=== PATIENT | male | born 1950 | race Caucasian/White ===

== ENCOUNTER 2023-01-16 23:38 | Inpatient (IN) | payer OTHER, BC ==
[2023-01-17] MEDS ORDERED: SODIUM CHLORIDE 0.9% 500 ML INFUS.BAG IV ONE (01:15)
[2023-01-17] MEDS ORDERED: ACETAMINOPHEN 1000 MG/100 ML BAG IVPB ONE (01:15)
[2023-01-17 01:38] LABS: BASO % 0.7 % (0-2.0); EOS % 0.8 % (0-4.5); HEMATOCRIT 37.5 % (35.4-49); HEMOGLOBIN 12.6 GM/dL (11.7-16.9); LYMPH % 11.4 % (8-40); MCH 31.5 pg (25.7-33.7); MCHC 33.6 g/dl (32.0-35.9); MEAN CELL VOLUME 93.8 fl (80-96); MEAN PLT VOLUME 7.2 fl (7.5-11.1); NEUT % 74.1 % (42.8-82.8); PLATELET COUNT 355 10^3/uL (134-434); RBC 3.99 M/mm3 (4.00-5.60); RDW 12.8 % (11.9-15.9); WHITE BLOOD COUNT 15.5 K/mm3 (4.0-10.0)
[2023-01-17 01:56] LABS: POTASSIUM 4.1 mmol/L (3.5-5.1)
[2023-01-17 01:57] LABS: ALBUMIN 2.6 g/dl (3.4-5.0); BLOOD UREA NITROGEN 18.3 mg/dL (7-18); CALCIUM 8.2 mg/dL (8.5-10.1)
[2023-01-17 02:02] LABS: BILIRUBIN,TOTAL 0.4 mg/dL (0.2-1); TOT PROT 6.7 g/dl (6.4-8.2)
[2023-01-17 06:08] LABS: PH,URINE 6.5 (5.0-8.0); URINE APPEARANCE CLEAR; URINE BILIRUBIN NEGATIVE (NEGATIVE); URINE COLOR YELLOW; URINE GLUCOSE (UA) NEGATIVE (NEGATIVE); URINE KETONE NEGATIVE (NEGATIVE); URINE LEUK ESTERASE NEGATIVE (NEGATIVE); URINE NITRITE NEGATIVE (NEGATIVE); URINE PROTEIN NEGATIVE (NEGATIVE)
[2023-01-17 06:48] LABS: ERYTHROCYTE SEDIMENTATION RATE 91 mm/hr (0-20)
[2023-01-17 08:53] LABS: PH,URINE 6.5 (5.0-8.0); URINE APPEARANCE CLEAR; URINE BILIRUBIN NEGATIVE (NEGATIVE); URINE COLOR YELLOW; URINE GLUCOSE (UA) NEGATIVE (NEGATIVE); URINE KETONE TRACE (NEGATIVE); URINE LEUK ESTERASE NEGATIVE (NEGATIVE); URINE NITRITE NEGATIVE (NEGATIVE); URINE PROTEIN TRACE (NEGATIVE)
[2023-01-17 09:18] LABS: BASO % 0.9 % (0-2.0); EOS % 2.3 % (0-4.5); HEMATOCRIT 35.9 % (35.4-49); HEMOGLOBIN 12.2 GM/dL (11.7-16.9); LYMPH % 14.7 % (8-40); MCH 31.9 pg (25.7-33.7); MCHC 33.9 g/dl (32.0-35.9); MEAN CELL VOLUME 94.1 fl (80-96); MEAN PLT VOLUME 7.2 fl (7.5-11.1); MONO % 11.5 % (3.8-10.2); NEUT % 70.6 % (42.8-82.8); PLATELET COUNT 377 10^3/uL (134-434); RBC 3.82 M/mm3 (4.00-5.60); RDW 12.6 % (11.9-15.9); WHITE BLOOD COUNT 15.3 K/mm3 (4.0-10.0)
[2023-01-17 09:31] LABS: POTASSIUM 4.1 mmol/L (3.5-5.1)
[2023-01-17 09:33] LABS: CALCIUM 8.1 mg/dL (8.5-10.1)
[2023-01-17 09:34] LABS: ALBUMIN 2.4 g/dl (3.4-5.0); BLOOD UREA NITROGEN 14.1 mg/dL (7-18)
[2023-01-17 09:37] LABS: CREATININE 0.9 mg/dL (0.55-1.3)
[2023-01-17 09:38] LABS: TOT PROT 6.3 g/dl (6.4-8.2)
[2023-01-17 09:39] LABS: BILIRUBIN,TOTAL 0.6 mg/dL (0.2-1)
[2023-01-17] MEDS ORDERED: LEVOTHYROXINE NA 125 MCG TABLET (FP) PO ONE (11:00)
[2023-01-17] MEDS ORDERED: LEVOTHYROXINE 112 MCG, LEVOTHYROXINE 25 MCG PO ONE (12:00)
[2023-01-17] MEDS ORDERED: PIPERACILLIN/TAZOB 4.5 GM 3.375 GM in DEXTROSE 5%-WATER 100 ML IVPB ONE (12:42)
[2023-01-17] MEDS ORDERED: CEFTRIAXONE 1 GM/50 ML BAG ONE (13:00)
[2023-01-17] MEDS: CEFTRIAXONE 1 GM in DEXTROSE 5%-WATER - 50 ML IVPB SCH (13:02)
[2023-01-17 16:40] LABS: HIV INTERPRETATION NEGATIVE (NEGATIVE)
[2023-01-17] MEDS ORDERED: DOCUSATE SODIUM 100 MG CAPSULE (FP) PO ONE (17:49)
[2023-01-17] MEDS: DOCUSATE SODIUM 100 MG CAPSULE (FP) PO SCH ×2 (17:50→22:21)
[2023-01-17] MEDS: ACETAMINOPHEN 500 MG TABLET (FP) PO PRN (18:12)
[2023-01-17] MEDS ORDERED: ACETAMINOPHEN 325 MG TABLET (FP) ONE (18:12)
[2023-01-18 05:01] VITALS: BMI 19.5
[2023-01-18] MEDS: LEVOTHYROXINE 112 MCG, LEVOTHYROXINE 25 MCG PO SCH (06:29)
[2023-01-18] MEDS: DOCUSATE SODIUM 100 MG CAPSULE (FP) PO SCH ×3 (06:29→21:45)
[2023-01-18] MEDS ORDERED: LEVOTHYROXINE NA 125 MCG TABLET (FP) PO SCH (07:00)
[2023-01-18] MEDS ORDERED: cefTRIAXone SODIUM 1 GM VIAL ONE ×2 (09:17→09:43)
[2023-01-18] MEDS: CEFTRIAXONE 1 GM in DEXTROSE 5%-WATER - 50 ML IVPB SCH (09:36)
[2023-01-18] MEDS: ENOXAPARIN NA (PORCINE) 40 MG/0.4 ML DISP.SYRIN SQ SCH (09:45)
[2023-01-18 10:07] LABS: CMV IgM < 30.0 AU/mL (0.0-29.9)
[2023-01-18 12:45] LABS: BASO % 0.9 % (0-2.0); EOS % 1.3 % (0-4.5); HEMATOCRIT 34.7 % (35.4-49); HEMOGLOBIN 11.9 GM/dL (11.7-16.9); LYMPH % 12.7 % (8-40); MCH 31.9 pg (25.7-33.7); MCHC 34.3 g/dl (32.0-35.9); MEAN PLT VOLUME 7.7 fl (7.5-11.1); MONO % 12.2 % (3.8-10.2); NEUT % 72.9 % (42.8-82.8); PLATELET COUNT 369 10^3/uL (134-434); RBC 3.73 M/mm3 (4.00-5.60); RDW 12.9 % (11.9-15.9); WHITE BLOOD COUNT 12.5 K/mm3 (4.0-10.0)
[2023-01-18 12:48] LABS: INR 1.51 (0.83-1.09); PROTHROMBIN TIME (PATIENT) 17.4 SEC (9.7-13.0)
[2023-01-18 13:02] LABS: POTASSIUM 3.8 mmol/L (3.5-5.1)
[2023-01-18 13:03] LABS: CALCIUM 7.9 mg/dL (8.5-10.1)
[2023-01-18 13:04] LABS: ALBUMIN 2.2 g/dl (3.4-5.0); BLOOD UREA NITROGEN 14.5 mg/dL (7-18)
[2023-01-18 13:06] LABS: CREATININE 0.9 mg/dL (0.55-1.3)
[2023-01-18 13:08] LABS: BILIRUBIN,TOTAL 0.4 mg/dL (0.2-1); TOT PROT 6.1 g/dl (6.4-8.2)
[2023-01-18] MEDS: METHYL SALICYLATE/MENTHOL OINT 30 GM TUBE TP SCH ×3 (14:43→22:24)
[2023-01-18] MEDS: ACETAMINOPHEN 500 MG TABLET (FP) PO PRN (16:16)
[2023-01-18 17:06] LABS: EPSTEIN BARR ANTIBODY IgM <36.0 U/mL (0.0-35.9)
[2023-01-19] MEDS: LEVOTHYROXINE 112 MCG, LEVOTHYROXINE 25 MCG PO SCH (06:33)
[2023-01-19] MEDS: DOCUSATE SODIUM 100 MG CAPSULE (FP) PO SCH ×3 (06:33→21:31)
[2023-01-19 07:59] LABS: BASO % 0.5 % (0-2.0); EOS % 2.9 % (0-4.5); HEMATOCRIT 34.7 % (35.4-49); HEMOGLOBIN 11.7 GM/dL (11.7-16.9); LYMPH % 10.1 % (8-40); MCH 31.9 pg (25.7-33.7); MCHC 33.7 g/dl (32.0-35.9); MEAN CELL VOLUME 94.6 fl (80-96); MEAN PLT VOLUME 7.2 fl (7.5-11.1); MONO % 12.8 % (3.8-10.2); NEUT % 73.7 % (42.8-82.8); PLATELET COUNT 386 10^3/uL (134-434); RBC 3.67 M/mm3 (4.00-5.60); RDW 12.8 % (11.9-15.9); WHITE BLOOD COUNT 14.5 K/mm3 (4.0-10.0)
[2023-01-19 08:23] LABS: POTASSIUM 4.2 mmol/L (3.5-5.1)
[2023-01-19 08:42] LABS: ALBUMIN 2.1 g/dl (3.4-5.0); BLOOD UREA NITROGEN 17.1 mg/dL (7-18); CALCIUM 7.8 mg/dL (8.5-10.1); MAGNESIUM 2.1 mg/dL (1.8-2.4)
[2023-01-19 08:45] LABS: BILIRUBIN,TOTAL 0.9 mg/dL (0.2-1); CREATININE 0.9 mg/dL (0.55-1.3); PHOSPHOROUS 3.1 mg/dL (2.5-4.9); TOT PROT 5.8 g/dl (6.4-8.2)
[2023-01-19] MEDS: METHYL SALICYLATE/MENTHOL OINT 30 GM TUBE TP SCH ×2 (10:49→21:31)
[2023-01-19] MEDS: ENOXAPARIN NA (PORCINE) 40 MG/0.4 ML DISP.SYRIN SQ SCH (10:50)
[2023-01-19] MEDS: CEFTRIAXONE 1 GM in DEXTROSE 5%-WATER - 50 ML IVPB SCH (10:50)
[2023-01-19] MEDS: PIPERACILLIN/TAZOB 4.5 GM 4.5 GM in DEXTROSE 5%-WATER 100 ML IVPB SCH (18:18)
[2023-01-19] MEDS: ACETAMINOPHEN 500 MG TABLET (FP) PO PRN (21:18)
[2023-01-20] MEDS: PIPERACILLIN/TAZOB 4.5 GM 4.5 GM in DEXTROSE 5%-WATER 100 ML IVPB SCH ×3 (02:06→17:34)
[2023-01-20] MEDS: DOCUSATE SODIUM 100 MG CAPSULE (FP) PO SCH ×4 (06:11→22:44)
[2023-01-20] MEDS: LEVOTHYROXINE 112 MCG, LEVOTHYROXINE 25 MCG PO SCH (06:15)
[2023-01-20 08:58] LABS: BASO % 0.6 % (0-2.0); EOS % 2.9 % (0-4.5); HEMATOCRIT 34.4 % (35.4-49); HEMOGLOBIN 11.5 GM/dL (11.7-16.9); LYMPH % 8.2 % (8-40); MCH 31.6 pg (25.7-33.7); MCHC 33.5 g/dl (32.0-35.9); MEAN CELL VOLUME 94.4 fl (80-96); MEAN PLT VOLUME 7.3 fl (7.5-11.1); MONO % 11.1 % (3.8-10.2); NEUT % 77.2 % (42.8-82.8); PLATELET COUNT 434 10^3/uL (134-434); RBC 3.64 M/mm3 (4.00-5.60); RDW 12.7 % (11.9-15.9); WHITE BLOOD COUNT 16.1 K/mm3 (4.0-10.0)
[2023-01-20] MEDS: METHYL SALICYLATE/MENTHOL OINT 30 GM TUBE TP SCH ×3 (09:13→22:45)
[2023-01-20] MEDS: ENOXAPARIN NA (PORCINE) 40 MG/0.4 ML DISP.SYRIN SQ SCH (09:13)
[2023-01-20 09:16] LABS: POTASSIUM 4.2 mmol/L (3.5-5.1)
[2023-01-20 09:22] LABS: BLOOD UREA NITROGEN 18.7 mg/dL (7-18); MAGNESIUM 2.1 mg/dL (1.8-2.4)
[2023-01-20 09:25] LABS: CREATININE 0.9 mg/dL (0.55-1.3)
[2023-01-20 09:26] LABS: BILIRUBIN,TOTAL 0.6 mg/dL (0.2-1); TOT PROT 5.8 g/dl (6.4-8.2)
[2023-01-20] MEDS: ACETAMINOPHEN 500 MG TABLET (FP) PO PRN ×2 (11:09→22:46)
[2023-01-21] MEDS: PIPERACILLIN/TAZOB 4.5 GM 4.5 GM in DEXTROSE 5%-WATER 100 ML IVPB SCH ×3 (01:41→18:18)
[2023-01-21] MEDS: DOCUSATE SODIUM 100 MG CAPSULE (FP) PO SCH ×3 (06:11→21:36)
[2023-01-21] MEDS: LEVOTHYROXINE 112 MCG, LEVOTHYROXINE 25 MCG PO SCH (06:12)
[2023-01-21 09:00] LABS: BASO % 0.5 % (0-2.0); EOS % 4.5 % (0-4.5); HEMATOCRIT 34.1 % (35.4-49); HEMOGLOBIN 11.7 GM/dL (11.7-16.9); LYMPH % 10.6 % (8-40); MCH 32.2 pg (25.7-33.7); MCHC 34.3 g/dl (32.0-35.9); MEAN CELL VOLUME 93.8 fl (80-96); MEAN PLT VOLUME 6.9 fl (7.5-11.1); MONO % 11.1 % (3.8-10.2); NEUT % 73.3 % (42.8-82.8); PLATELET COUNT 473 10^3/uL (134-434); RBC 3.64 M/mm3 (4.00-5.60); RDW 12.9 % (11.9-15.9); WHITE BLOOD COUNT 14.6 K/mm3 (4.0-10.0)
[2023-01-21 09:10] LABS: POTASSIUM 4.3 mmol/L (3.5-5.1)
[2023-01-21 09:15] LABS: MAGNESIUM 2.2 mg/dL (1.8-2.4)
[2023-01-21 09:18] LABS: CREATININE 0.8 mg/dL (0.55-1.3); PHOSPHOROUS 3.2 mg/dL (2.5-4.9)
[2023-01-21 09:20] LABS: BILIRUBIN,TOTAL 0.6 mg/dL (0.2-1); TOT PROT 5.8 g/dl (6.4-8.2)
[2023-01-21 09:25] LABS: BLOOD UREA NITROGEN 13.3 mg/dL (7-18)
[2023-01-21] MEDS ORDERED: PIPERACILLIN/TAZOBACTAM 4.5 GM VIAL IVPB ONE (10:12)
[2023-01-21] MEDS: ENOXAPARIN NA (PORCINE) 40 MG/0.4 ML DISP.SYRIN SQ SCH (10:31)
[2023-01-21] MEDS: METHYL SALICYLATE/MENTHOL OINT 30 GM TUBE TP SCH ×2 (10:38→21:35)
[2023-01-21] MEDS: ACETAMINOPHEN 500 MG TABLET (FP) PO PRN ×2 (10:46→21:41)
[2023-01-21] MEDS: GABAPENTIN 100 MG CAPSULE PO SCH ×2 (13:43→21:36)
[2023-01-21] MEDS: POLYETHYLENE GLYCOL (HEALTHYLAX) 3350 17 GM PACKET PO SCH (13:45)
[2023-01-22] MEDS: PIPERACILLIN/TAZOB 4.5 GM 4.5 GM in DEXTROSE 5%-WATER 100 ML IVPB SCH ×3 (02:49→17:40)
[2023-01-22] MEDS: DOCUSATE SODIUM 100 MG CAPSULE (FP) PO SCH ×3 (05:43→22:09)
[2023-01-22] MEDS: GABAPENTIN 100 MG CAPSULE PO SCH ×3 (05:43→22:09)
[2023-01-22] MEDS: LEVOTHYROXINE 112 MCG, LEVOTHYROXINE 25 MCG PO SCH (06:21)
[2023-01-22 09:36] LABS: BASO % 0.5 % (0-2.0); EOS % 4.1 % (0-4.5); HEMATOCRIT 33.4 % (35.4-49); HEMOGLOBIN 11.5 GM/dL (11.7-16.9); LYMPH % 8.9 % (8-40); MCH 32.2 pg (25.7-33.7); MCHC 34.3 g/dl (32.0-35.9); MEAN CELL VOLUME 93.9 fl (80-96); MEAN PLT VOLUME 7.1 fl (7.5-11.1); MONO % 11.5 % (3.8-10.2); PLATELET COUNT 492 10^3/uL (134-434); RBC 3.56 M/mm3 (4.00-5.60); RDW 12.9 % (11.9-15.9); WHITE BLOOD COUNT 13.7 K/mm3 (4.0-10.0)
[2023-01-22] MEDS: ENOXAPARIN NA (PORCINE) 40 MG/0.4 ML DISP.SYRIN SQ SCH (10:09)
[2023-01-22] MEDS: POLYETHYLENE GLYCOL (HEALTHYLAX) 3350 17 GM PACKET PO SCH (10:09)
[2023-01-22] MEDS: METHYL SALICYLATE/MENTHOL OINT 30 GM TUBE TP SCH ×2 (10:10→22:10)
[2023-01-22 10:44] LABS: POTASSIUM 4.4 mmol/L (3.5-5.1)
[2023-01-22 10:51] LABS: CALCIUM 7.7 mg/dL (8.5-10.1)
[2023-01-22 10:52] LABS: BLOOD UREA NITROGEN 15.4 mg/dL (7-18); MAGNESIUM 2.2 mg/dL (1.8-2.4)
[2023-01-22 10:55] LABS: CREATININE 0.9 mg/dL (0.55-1.3)
[2023-01-22 10:57] LABS: BILIRUBIN,TOTAL 0.4 mg/dL (0.2-1); TOT PROT 5.7 g/dl (6.4-8.2)
[2023-01-22] MEDS ORDERED: CEFTRIAXONE 2 GM-D5W BAG 2 GM/50 ML BAG IVPB SCH (16:45)
[2023-01-22] MEDS: ACETAMINOPHEN 500 MG TABLET (FP) PO PRN ×2 (16:56→23:06)
[2023-01-22] MEDS ORDERED: CLINDAMYCIN 600MG PREMIX IVPB 600 MG/50 ML BAG IVPB SCH (18:00)
[2023-01-23] MEDS: PIPERACILLIN/TAZOB 4.5 GM 4.5 GM in DEXTROSE 5%-WATER 100 ML IVPB SCH ×3 (01:49→18:48)
[2023-01-23] MEDS: LEVOTHYROXINE 112 MCG, LEVOTHYROXINE 25 MCG PO SCH (06:11)
[2023-01-23] MEDS: GABAPENTIN 100 MG CAPSULE PO SCH ×3 (06:11→21:04)
[2023-01-23] MEDS: DOCUSATE SODIUM 100 MG CAPSULE (FP) PO SCH ×2 (06:14→15:52)
[2023-01-23 08:54] LABS: BASO % 0.9 % (0-2.0); EOS % 4.6 % (0-4.5); HEMATOCRIT 33.3 % (35.4-49); HEMOGLOBIN 11.1 GM/dL (11.7-16.9); LYMPH % 8.8 % (8-40); MCH 31.1 pg (25.7-33.7); MCHC 33.3 g/dl (32.0-35.9); MEAN CELL VOLUME 93.3 fl (80-96); MEAN PLT VOLUME 6.7 fl (7.5-11.1); MONO % 11.2 % (3.8-10.2); NEUT % 74.5 % (42.8-82.8); PLATELET COUNT 546 10^3/uL (134-434); RBC 3.57 M/mm3 (4.00-5.60); RDW 13.1 % (11.9-15.9); WHITE BLOOD COUNT 13.9 K/mm3 (4.0-10.0)
[2023-01-23] MEDS: ENOXAPARIN NA (PORCINE) 40 MG/0.4 ML DISP.SYRIN SQ SCH (09:59)
[2023-01-23] MEDS: POLYETHYLENE GLYCOL (HEALTHYLAX) 3350 17 GM PACKET PO SCH ×2 (10:00→11:04)
[2023-01-23 10:12] LABS: POTASSIUM 4.4 mmol/L (3.5-5.1)
[2023-01-23 10:21] LABS: ALBUMIN 1.9 g/dl (3.4-5.0); BLOOD UREA NITROGEN 13.4 mg/dL (7-18); MAGNESIUM 2.3 mg/dL (1.8-2.4)
[2023-01-23 10:24] LABS: CREATININE 0.8 mg/dL (0.55-1.3)
[2023-01-23 10:25] LABS: TOT PROT 5.7 g/dl (6.4-8.2)
[2023-01-23 11:16] LABS: BILIRUBIN,TOTAL 0.3 mg/dL (0.2-1)
[2023-01-23] MEDS: ACETAMINOPHEN 500 MG TABLET (FP) PO PRN ×2 (15:52→23:27)
[2023-01-23] MEDS: METHYL SALICYLATE/MENTHOL OINT 30 GM TUBE TP SCH ×2 (16:02→21:03)
[2023-01-24] MEDS: PIPERACILLIN/TAZOB 4.5 GM 4.5 GM in DEXTROSE 5%-WATER 100 ML IVPB SCH ×3 (01:33→17:30)
[2023-01-24] MEDS: LEVOTHYROXINE 112 MCG, LEVOTHYROXINE 25 MCG PO SCH (06:15)
[2023-01-24] MEDS: GABAPENTIN 100 MG CAPSULE PO SCH ×3 (06:15→21:45)
[2023-01-24] MEDS: METHYL SALICYLATE/MENTHOL OINT 30 GM TUBE TP SCH ×2 (09:07→21:49)
[2023-01-24] MEDS: POLYETHYLENE GLYCOL (HEALTHYLAX) 3350 17 GM PACKET PO SCH (09:07)
[2023-01-24 09:43] LABS: BASO % 0.7 % (0-2.0); EOS % 4.2 % (0-4.5); HEMATOCRIT 34.4 % (35.4-49); HEMOGLOBIN 11.5 GM/dL (11.7-16.9); LYMPH % 12.9 % (8-40); MCH 31.4 pg (25.7-33.7); MCHC 33.5 g/dl (32.0-35.9); MEAN CELL VOLUME 93.6 fl (80-96); MEAN PLT VOLUME 6.8 fl (7.5-11.1); MONO % 9.9 % (3.8-10.2); NEUT % 72.3 % (42.8-82.8); PLATELET COUNT 578 10^3/uL (134-434); RBC 3.68 M/mm3 (4.00-5.60); RDW 12.8 % (11.9-15.9); WHITE BLOOD COUNT 13.2 K/mm3 (4.0-10.0)
[2023-01-24] MEDS: ENOXAPARIN NA (PORCINE) 40 MG/0.4 ML DISP.SYRIN SQ SCH (09:46)
[2023-01-24 10:35] LABS: POTASSIUM 4.3 mmol/L (3.5-5.1)
[2023-01-24 10:38] LABS: CALCIUM 7.9 mg/dL (8.5-10.1)
[2023-01-24 10:39] LABS: BLOOD UREA NITROGEN 11.8 mg/dL (7-18); MAGNESIUM 2.2 mg/dL (1.8-2.4)
[2023-01-24 10:41] LABS: CREATININE 0.9 mg/dL (0.55-1.3)
[2023-01-24 10:42] LABS: TOT PROT 5.9 g/dl (6.4-8.2)
[2023-01-24 10:43] LABS: BILIRUBIN,TOTAL 0.6 mg/dL (0.2-1)
[2023-01-25] MEDS: PIPERACILLIN/TAZOB 4.5 GM 4.5 GM in DEXTROSE 5%-WATER 100 ML IVPB SCH ×3 (01:53→17:34)
[2023-01-25] MEDS: LEVOTHYROXINE 112 MCG, LEVOTHYROXINE 25 MCG PO SCH (07:06)
[2023-01-25] MEDS: GABAPENTIN 100 MG CAPSULE PO SCH ×3 (07:07→21:13)
[2023-01-25] MEDS: METHYL SALICYLATE/MENTHOL OINT 30 GM TUBE TP SCH ×2 (09:16→21:13)
[2023-01-25] MEDS: ENOXAPARIN NA (PORCINE) 40 MG/0.4 ML DISP.SYRIN SQ SCH (09:17)
[2023-01-25] MEDS: POLYETHYLENE GLYCOL (HEALTHYLAX) 3350 17 GM PACKET PO SCH (09:17)
[2023-01-25 09:58] LABS: BASO % 0.7 % (0-2.0); EOS % 3.3 % (0-4.5); HEMATOCRIT 35.9 % (35.4-49); LYMPH % 13.1 % (8-40); MCH 31.2 pg (25.7-33.7); MCHC 33.5 g/dl (32.0-35.9); MEAN CELL VOLUME 93.4 fl (80-96); MEAN PLT VOLUME 6.4 fl (7.5-11.1); MONO % 10.5 % (3.8-10.2); NEUT % 72.4 % (42.8-82.8); PLATELET COUNT 705 10^3/uL (134-434); RBC 3.85 M/mm3 (4.00-5.60); RDW 13.3 % (11.9-15.9); WHITE BLOOD COUNT 13.1 K/mm3 (4.0-10.0)
[2023-01-25 10:15] LABS: POTASSIUM 3.9 mmol/L (3.5-5.1)
[2023-01-25 10:20] LABS: BLOOD UREA NITROGEN 11.6 mg/dL (7-18)
[2023-01-25 10:21] LABS: CALCIUM 8.8 mg/dL (8.5-10.1)
[2023-01-25 10:23] LABS: CREATININE 0.9 mg/dL (0.55-1.3)
[2023-01-25 10:24] LABS: TOT PROT 6.2 g/dl (6.4-8.2)
[2023-01-25 10:27] LABS: BILIRUBIN,TOTAL 0.3 mg/dL (0.2-1)
[2023-01-26] MEDS: PIPERACILLIN/TAZOB 4.5 GM 4.5 GM in DEXTROSE 5%-WATER 100 ML IVPB SCH ×3 (01:32→18:13)
[2023-01-26] MEDS: LEVOTHYROXINE 112 MCG, LEVOTHYROXINE 25 MCG PO SCH (06:07)
[2023-01-26] MEDS: GABAPENTIN 100 MG CAPSULE PO SCH ×3 (06:07→21:47)
[2023-01-26] MEDS: ENOXAPARIN NA (PORCINE) 40 MG/0.4 ML DISP.SYRIN SQ SCH (09:40)
[2023-01-26] MEDS: POLYETHYLENE GLYCOL (HEALTHYLAX) 3350 17 GM PACKET PO SCH ×2 (09:40→09:45)
[2023-01-26] MEDS: METHYL SALICYLATE/MENTHOL OINT 30 GM TUBE TP SCH ×2 (09:46→21:48)
[2023-01-26] MEDS ORDERED: DOCUSATE SODIUM 100 MG CAPSULE (FP) PO PRN (10:48)
[2023-01-26 11:37] LABS: BASO % 0.7 % (0-2.0); EOS % 3.7 % (0-4.5); HEMATOCRIT 37.5 % (35.4-49); HEMOGLOBIN 12.4 GM/dL (11.7-16.9); MCH 30.9 pg (25.7-33.7); MCHC 32.9 g/dl (32.0-35.9); MEAN CELL VOLUME 93.8 fl (80-96); MEAN PLT VOLUME 6.4 fl (7.5-11.1); MONO % 11.7 % (3.8-10.2); NEUT % 69.9 % (42.8-82.8); PLATELET COUNT 751 10^3/uL (134-434); RDW 13.3 % (11.9-15.9); WHITE BLOOD COUNT 14.6 K/mm3 (4.0-10.0)
[2023-01-26 11:55] LABS: POTASSIUM 4.2 mmol/L (3.5-5.1)
[2023-01-26 11:56] LABS: CALCIUM 8.6 mg/dL (8.5-10.1)
[2023-01-26 11:57] LABS: BLOOD UREA NITROGEN 13.2 mg/dL (7-18)
[2023-01-26] MEDS ORDERED: LACTULOSE 20 GM/30 ML UDC (FOR ORAL USE ONLY) PO ONE (16:44)
[2023-01-27] MEDS: PIPERACILLIN/TAZOB 4.5 GM 4.5 GM in DEXTROSE 5%-WATER 100 ML IVPB SCH ×3 (01:48→18:31)
[2023-01-27] MEDS: LEVOTHYROXINE 112 MCG, LEVOTHYROXINE 25 MCG PO SCH (07:00)
[2023-01-27] MEDS: GABAPENTIN 100 MG CAPSULE PO SCH ×3 (07:00→21:44)
[2023-01-27 10:11] LABS: BASO % 0.9 % (0-2.0); EOS % 5.1 % (0-4.5); HEMATOCRIT 35.6 % (35.4-49); HEMOGLOBIN 11.8 GM/dL (11.7-16.9); LYMPH % 15.2 % (8-40); MCH 30.7 pg (25.7-33.7); MEAN CELL VOLUME 93.1 fl (80-96); MEAN PLT VOLUME 6.5 fl (7.5-11.1); MONO % 12.2 % (3.8-10.2); NEUT % 66.6 % (42.8-82.8); PLATELET COUNT 742 10^3/uL (134-434); RBC 3.83 M/mm3 (4.00-5.60); RDW 13.1 % (11.9-15.9); WHITE BLOOD COUNT 12.8 K/mm3 (4.0-10.0)
[2023-01-27] MEDS: POLYETHYLENE GLYCOL (HEALTHYLAX) 3350 17 GM PACKET PO SCH (10:35)
[2023-01-27] MEDS: METHYL SALICYLATE/MENTHOL OINT 30 GM TUBE TP SCH ×2 (10:35→21:44)
[2023-01-27] MEDS: ENOXAPARIN NA (PORCINE) 40 MG/0.4 ML DISP.SYRIN SQ SCH (10:37)
[2023-01-27 10:39] LABS: POTASSIUM 4.5 mmol/L (3.5-5.1)
[2023-01-27 10:41] LABS: CALCIUM 9.1 mg/dL (8.5-10.1)
[2023-01-27 10:42] LABS: BLOOD UREA NITROGEN 12.5 mg/dL (7-18)
[2023-01-27 10:44] LABS: CREATININE 0.9 mg/dL (0.55-1.3)
[2023-01-27 12:09] VITALS: RESP 18
[2023-01-27] MEDS ORDERED: LACTULOSE 20 GM/30 ML UDC (FOR ORAL USE ONLY) PO SCH (22:00)
[2023-01-28] MEDS: PIPERACILLIN/TAZOB 4.5 GM 4.5 GM in DEXTROSE 5%-WATER 100 ML IVPB SCH ×2 (02:16→09:49)
[2023-01-28] MEDS: LEVOTHYROXINE 112 MCG, LEVOTHYROXINE 25 MCG PO SCH (07:03)
[2023-01-28] MEDS: GABAPENTIN 100 MG CAPSULE PO SCH ×2 (07:03→14:34)
[2023-01-28 09:13] LABS: EOS % 4.8 % (0-4.5); HEMATOCRIT 32.8 % (35.4-49); HEMOGLOBIN 11.1 GM/dL (11.7-16.9); LYMPH % 13.1 % (8-40); MCH 31.6 pg (25.7-33.7); MCHC 33.9 g/dl (32.0-35.9); MEAN CELL VOLUME 93.3 fl (80-96); MEAN PLT VOLUME 6.6 fl (7.5-11.1); MONO % 13.3 % (3.8-10.2); NEUT % 67.8 % (42.8-82.8); PLATELET COUNT 611 10^3/uL (134-434); RBC 3.52 M/mm3 (4.00-5.60); RDW 12.9 % (11.9-15.9); WHITE BLOOD COUNT 11.9 K/mm3 (4.0-10.0)
[2023-01-28 09:33] LABS: POTASSIUM 4.5 mmol/L (3.5-5.1)
[2023-01-28 09:35] LABS: CALCIUM 8.7 mg/dL (8.5-10.1)
[2023-01-28 09:36] LABS: ALBUMIN 1.9 g/dl (3.4-5.0); BLOOD UREA NITROGEN 13.2 mg/dL (7-18)
[2023-01-28 09:39] LABS: CREATININE 0.9 mg/dL (0.55-1.3)
[2023-01-28 09:40] LABS: BILIRUBIN,TOTAL 0.4 mg/dL (0.2-1)
[2023-01-28] MEDS: POLYETHYLENE GLYCOL (HEALTHYLAX) 3350 17 GM PACKET PO SCH (09:49)
[2023-01-28] MEDS: ENOXAPARIN NA (PORCINE) 40 MG/0.4 ML DISP.SYRIN SQ SCH (09:49)
[2023-01-28 09:50] VITALS: TEMP 98.5
[2023-01-28 14:50] VITALS: BP 118/78; PULSE 102
== END 2023-01-28 22:19 | disposition home or self-care (01) | DRG 872 ==
LOC: JER 23:38 → JERBED 01-17 06:10 → J8W 01-17 19:03 → OBSVTOIN 01-20 13:20 → J8W 01-20 20:37
PROVIDERS: ADMIT Internal Medicine; ATTEND Nurse Practitioner Family
DX: A41.9 Sepsis, unspecified organism (principal); K57.20 Diverticulitis of large intestine with perforation and abscess without bleeding; E44.0 Moderate protein-calorie malnutrition; Z68.1 Body mass index [BMI] 19.9 or less, adult; E03.9 Hypothyroidism, unspecified; D64.9 Anemia, unspecified; K76.89 Other specified diseases of liver; K59.00 Constipation, unspecified
CPT/HCPCS: 0241U-QW; 36415; 71045-TC-FY; 72128-TC; 72131-TC; 72158-TC; 74177-TC; 76705-TC; 80048; 80053; 81003; 82085; 82550; 82607; 82728; 82746; 83605; 83735; 84100; 84155; 84165; 84439; 84443; 84481; 85025; 85610; 85651; 86038; 86140; 86644; 86645; 86664; 86665; 87040; 87086; 87207; 87209; 87389; 87633; 93005; 93010; 93970-TC; 97116-GP; 97162-GP; 99285-25; G0378; Q9967